=== PATIENT | male | born 1960 | race Caucasian/White ===

== ENCOUNTER 2021-01-08 13:00 | Observation (INO) ==
--- NOTE | 2021-01-08 13:20 | ERNOTE ---
Neuro HPI ER Record Date of Service: 01/08/21 Presenting Symptoms: confusion, other - unresponsive episode Time Seen by Provider: 01/08/21 13:00 Source: patient Exam Limitations: clinical condition Immunizations: IMMUNIZATION HX Immunizations Up to Date Yes Allergies/Adverse Reactions: Allergies Allergy/AdvReac Type Severity Reaction Status Date / Time No Known Allergies Allergy Verified 01/08/21 16:13 Home Medications: HOME MEDICATIONS Aspirin [Aspirin Chewable] 81 mg PO DAILY 01/08/21 [Last Taken Unknown] Clopidogrel Bisulfate [Plavix] 75 mg PO DAILY 01/08/21 [Last Taken Unknown] Duloxetine HCl [Cymbalta] 60 mg PO BID 01/08/21 [Last Taken Unknown] Pregabalin [Lyrica] 100 mg PO TID 01/08/21 [Last Taken Unknown] Rosuvastatin Calcium [Crestor] 20 mg PO DAILY 01/08/21 [Last Taken Unknown] traMADol HCL [Tramadol HCl] 50 mg PO DAILY 01/08/21 [Last Taken Unknown] - Pain Score Pain Score #1 Pain Score: 0 - History of Present Illness Narrative: The patient is a 60 year old male who presents via [facility] for unresponsive episode which has been present since [employer]. There are associated symptoms of altered mentation. The patient denies pain. There are no alleviating factors. There are no aggravating factors. Previous treatments have included: none. The past medical history includes: MA. The social history is positive for daily alcohol use. The patient has had no known ill contacts. Patient was at work and last seen by coworker at 1220 and was reported normal. 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 Patient began becoming responsive during transport to ER. Patient upon arrival oriented to month and self but disoriented to events, location or year. Patient denies recent known fall, injury or illness. Family presents and states that patient did not have facial bruising this am upon leaving home. Patient also upon arrival reported daily alcohol use which he now denies as well as denied by significant other at bedside. Patient received his second Pfizer COVID vaccine 1 week ago. Review of Systems - Review of Systems Constitutional: Absent: recent illness EYE: Present: no symptoms reported. Absent: vision changes ENT: Absent: ear pain, nasal drainage Respiratory: Absent: shortness of breath, cough Cardiology: Absent: chest pain Gastrointestinal/Abdominal: Absent: nausea, vomiting, diarrhea Genitourinary: Present: no symptoms reported. Absent: dysuria Neurological: Present: no symptoms reported. Absent: headache, dizziness/light- headedness Medical History (Last Reviewed 01/08/21 @ 14:06 by MINERVA Manzanares) Chronic pain Diabetes controlled with diet Marijuana smoker Surgical History: Surgical History (Last Reviewed 01/08/21 @ 14:06 by MINERVA Manzanares) Forearm laceration with surgical repair History of surgery left femoral stent placement 06/17 Family History: Family History (Last Reviewed 01/08/21 @ 14:06 by MINERVA Manzanares) Mother Diabetes Hypertension Chronic back pain Father Throat cancer Brother Chronic back pain Social History: (Last Reviewed 01/08/21 @ 14:06 by MINERVA Manzanares) Social History: Marital status: lives independently: Yes household members: spouse Highest level of school completed/degree received: GED or equivalent Service: No Tobacco: Smoking Status: Former smoker Smoking End Date: 06/28/20 Alcohol: alcohol intake: current Alcohol type: hard liquor alcohol intake frequency: a few times a month Substance Use: substance use type: marijuana Dietary Habits: caffeine: Yes Type: coffee Physical Exam - Physical Exam General Appearance: Present: alert, mild distress, other - flat affect, appears disoriented Head Exam: Present: ecchymosis - bruising noted to right eyebrow and right cheek. 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 Absent: disoriented to person Skin Exam: Present: normal color, warm/dry [place] Coma Scale - Assess Eye Opening: Spontaneous Motor: Obeys Commands Verbal: Confused - Total Coma Scale Total: 14 Initial Stroke Assessment - Date/Time of assessment Stroke Scale Date: 01/08/21 Stroke Scale Time: 13:00 - NIH Stroke Scale Level of Consciousness: Alert LOC Questions (Year and Age): Answers one correctly LOC Commands (open/close eyes/fist): Performs both correctly Lateral Gaze Paresis: None Visual Field Loss: No visual loss Facial Palsy: Normal movement Right Arm Motor (10 sec hold): No drift Left Arm Motor (10 sec hold): No drift Right Leg Motor (5 sec hold): No drift Left Leg Motor (5 sec hold): No drift Limb Ataxia (finger/nose heel/hinton): Absent Sensory Loss (pinprick arms/legs/face): No sensory loss Language Aphasia (description/naming/reading): No aphasia; normal Dysarthria (speech clarity): Normal articulation Neglect Inattention (visual/tactile/auditory/spatial/person): No neglect Initial Stroke Scale Score:: 1 - Stroke Risk Assessment Stroke Risk Assessment Level: 1-4 Mild Impairment Stroke Inclusion/Exclusion Cri - Inclusion Questions: Yes Onset of symptoms <3 1/2 hours of admission to ETC: Yes - Exclusion Questions: Major symptoms rapidly improving: Yes Secondary Stroke Assessment - NIH Stroke Scale Level of Consciousness: Alert LOC Questions (Year and Age): Answers both correctly LOC Commands (open/close eyes/fist): Performs both correctly Lateral Gaze Paresis: None Visual Field Loss: No visual loss Facial Palsy: Normal movement Right Arm Motor (10 sec hold): No drift Left Arm Motor (10 sec hold): No drift Right Leg Motor (5 sec hold): No drift Left Leg Motor (5 sec hold): No drift Limb Ataxia (finger/nose heel/hinton): Absent Sensory Loss (pinprick arms/legs/face): No sensory loss Language Aphasia (description/naming/reading): No aphasia; normal Dysarthria (speech clarity): Normal articulation Neglect Inattention (visual/tactile/auditory/spatial/person): No neglect Secondary Stroke Scale Total:: 0 - Results of Tests Evidence of acute intracranial bleed: No Evidence of acute ischemic stroke: No CT result is negative: Yes CT results reported by : Platelets >100,000/ Hemogram normal: No PT<15 or INR <1.7: No PTT normal: Yes Progress - Date and Time Seen: Date and Time: 01/08/21 13:45 Patient beginning to recall events and states he remembers feeling dizzy following his route so he sat down in the back of his truck to rest. Unsure by reports what patients exact location was at time of being found. Lactic acid elevation which related to presentation suspicious for being postictal due to improving recollection following unresponsive event. 01/08/21 14:32 Results of labs and imaging discussed with patient and spouse at bedside. Patient returned to baseline and is alert and oriented by still unsure of events leading up to ER visit. Patient states he only recalls feeling dizzy and sitting down to rest but thought he had sat down in the back of his truck and does not recall any events following. Patient does take Tramadol for pain which could be cause for event. Case was reviewed with and will admit for observation, IV hydration and to schedule follow up with neurology. - Results and Orders Patient's Lab Results:: I have reviewed the patient's lab results. - Vital Signs Patient's Vital Signs:: I have reviewed the patient's vital signs. Vital Signs: Vital Signs 01/08/21 13:00 Temperature 36.4 C Pulse Rate 124 H Respiratory Rate 18 Blood Pressure 149/86 H O2 Sat by Pulse Oximetry 97 - EKG EKG #1 EKG: NSR - tachycardia rate 108, RBBB - incomplete EKG read: Reviewed by me EKG Comments: No acute ischemic change, no ST elevation, no ectopy - X-Ray X-Ray #1 X-Ray: chest Interpretation: Reviewed by me X-ray Comments: IMPRESSION: Mild left basilar heterogeneous opacities, possibly scarring or subsegmental atelectasis. No focal consolidation. Electronically signed by Lima Oscar D.O.. - CT/Ultrasound CT/Ultrasound Narrative: Impression: No acute intracranial process. Findings discussed with Shantelle by telephone at 1:18 PM on 01/08/2021. Electronically signed by Lima Oscar D.O.. - Progress/Reassessment Chief Complaint: CerebroVascular Accident Progress:: Improved Departure Clinical Impression: Transient alteration of awareness, Lactic acid increased Facial contusion Qualifiers: Encounter type: initial encounter Qualified Code(s): S00.83XA - Contusion of other part of head, initial encounter - Departure Disposition: Still a patient Condition: Stable
[2021-01-08 13:23] LABS: Hematocrit 41.9 % (42.0-52.0); Hemoglobin 13.7 gm/dL (13.5-18.0); Mean Cell Volume 88.2 fl (78-100); Mean Corpuscular Hemoglobin 28.8 pg (27-31); Mean Corpuscular Hgb Conc 32.7 g/dl (32-36); Mean Platelet Volume 8.6 fl (8-11.3); Neutrophil # 3.5 K/mm3 (1.3-6.0); Neutrophil % 37.6 % (42-75.0); Platelet Count 260 K/mm3 (150-450); Red Blood Count 4.75 M/mm3 (4.7-6.0); Red Cell Distribution Width 12.6 % (11.5-14.0); White Blood Count 9.4 K/mm3 (4.0-10.5)
[2021-01-08 13:33] LABS: Prothrombin Time (Patient) 10.4 Seconds (9.1-10.7)
[2021-01-08 13:35] LABS: Urine Bilirubin Negative (NEGATIVE); Urine Blood Negative /ul (NEGATIVE); Urine Ketone Negative (NEGATIVE); Urine Nitrite Negative (NEGATIVE); Urine Protein 15 mg/dL (NEGATIVE); Urine Urobilinogen Normal (NORMAL); Urine pH 5.5 pH (5.0-7.0)
[2021-01-08 13:43] LABS: ALT 32 U/L (19-67); AST 23 U/L (0-48); Albumin * 4.5 gm/dl (3.4-5.0); Alkaline Phosphatase * 108 U/L (50-170); Anion Gap 23.3 mmol/L (6.8-13.8); BUN/Creatinine Ratio 8.9 (9.0-21.6); Bilirubin, Total 0.3 mg/dL (0.0-1.1); Blood Urea Nitrogen 11 mg/dL (6-23); Ca. Corrected For Albumin 8.2 mg/dL (8.4-10.2); Calcium * 8.9 mg/dL (7.9-10.9); Carbon Dioxide 15.5 mmol/L (24-32.6); Chloride 97 mmol/L (97-106); Glucose * 164 mg/dL (70-110); Potassium 3.8 mmol/L (3.4-4.6); Sodium 132 mmol/L (132-142); Total Protein 7.9 gm/dL (6.2-8.2)
[2021-01-08 13:46] LABS: Troponin I Less than 0.017 ng/mL (0.00-0.10)
[2021-01-08] MEDS ORDERED: NORMAL SALINE 1,000 ML IV PRN (13:46)
[2021-01-08 13:50] LABS: Urine Appearance Slightly Cloudy (CLEAR); Urine Bacteria None Seen; Urine Color Yellow; Urine RBC None Seen /hpf (0-5); Urine WBC 0-5 /hpf (0-5)
[2021-01-08 13:51] LABS: Cocaine Ur Negative (NEGATIVE); Urine Barbiturate Negative (NEGATIVE); Urine Benzodiazepines Negative (NEGATIVE); Urine Opiates Negative (NEGATIVE); Urine PCP Negative (NEGATIVE); Urine Sperm TRACE
[2021-01-08 13:58] LABS: Urine THC Positive (NEGATIVE)
[2021-01-08] MEDS: NORMAL SALINE 1,000 ML IV PRN ×2 (15:04→23:59)
[2021-01-08] MEDS ORDERED: ACETAMINOPHEN 500 MG TABLET PO PRN (20:25)
[2021-01-08] MEDS ORDERED: traMADol HCL 50 MG TABLET PO PRN (20:25)
[2021-01-08] MEDS: DULoxetine HCL 30 MG CAPSULE.SA PO SCH (21:58)
[2021-01-08] MEDS: PREGABALIN 50 MG CAPSULE PO SCH (21:59)
[2021-01-09] MEDS ORDERED: ROSUVASTATIN CALCIUM 20 MG TABLET PO SCH ×2 (09:00→21:00)
[2021-01-09] MEDS ORDERED: CLOPIDOGREL BISULFATE 75 MG TABLET PO SCH (09:00)
[2021-01-09] MEDS ORDERED: ASPIRIN 81 MG TAB.CHEW PO SCH (09:00)
[2021-01-09] MEDS: PREGABALIN 50 MG CAPSULE PO SCH ×2 (09:01→13:38)
[2021-01-09] MEDS: DULoxetine HCL 30 MG CAPSULE.SA PO SCH (09:01)
[2021-01-09 09:16] LABS: Hematocrit 38.7 % (42.0-52.0); Hemoglobin 12.8 gm/dL (13.5-18.0); Mean Cell Volume 86.6 fl (78-100); Mean Corpuscular Hemoglobin 28.6 pg (27-31); Mean Corpuscular Hgb Conc 33.1 g/dl (32-36); Neutrophil % 61.1 % (42-75.0); Platelet Count 237 K/mm3 (150-450); Red Blood Count 4.47 M/mm3 (4.7-6.0); Red Cell Distribution Width 13.1 % (11.5-14.0); White Blood Count 8.2 K/mm3 (4.0-10.5)
[2021-01-09 09:19] LABS: Carboxyhemoglobin % 1.3 % (0.5-1.5)
[2021-01-09 09:42] LABS: Albumin * 3.7 gm/dl (3.4-5.0); Anion Gap 14.6 mmol/L (6.8-13.8); BUN/Creatinine Ratio 12.5 (9.0-21.6); Bilirubin, Total 0.4 mg/dL (0.0-1.1); Ca. Corrected For Albumin 8.6 mg/dL (8.4-10.2); Calcium * 8.7 mg/dL (7.9-10.9); Carbon Dioxide 23.8 mmol/L (24-32.6); Potassium 4.4 mmol/L (3.4-4.6); TSH * 0.826 uIU/mL (0.358-3.74); Total Protein 6.6 gm/dL (6.2-8.2)
--- NOTE | 2021-01-09 09:52 | HP ---
Chief Complaint - Chief Complaint Date of Service: 01/08/21 Time of Service: 18:00 Chief Complaint: Dizzy, loss of consciousness History of Present Illness: Harrison is a 60 yo male who presented to the [facility] ER, brought in for dizziness and loss of consciousness. He was working at [employer] when he was found down in a car bay. He was reported unconscious but came to with arousal. He was confused about what happened. There were no focal deficits noted. Security footage was available showing the episode. He was seen spinning in circles for about 7 minutes and then hit his head on a post/pipe and then fell to the ground where he laid for 17 minutes. His saw the video and described it to me. She reports his right leg was shaking a little while he was down but not like a seizure and the rest of his body did not move until he was found and woken up. He does recall feeling light headed and dizzy, but not spinning around. He does not recall hitting his head. He was noted to have an abrasion to his right eyebrow and he had a headache but otherwise feels fine. Blood work in the ER had an elevated lactate, but otherwise labs were normal. Head CT was normal. He reports the last few days have been normal and no different than usual. No changes in medications, diet, or fluid intake. He was doing his normal work activities when the event happened. He has never had anything happen like this before. He denies seizures or family history of seizures. He is on statin and plavix for peripheral arterial disease with a arterial stent placed last may. He admits to smoking marajuana nightly to help with chronic pain. He drinks occasionally but he is not worried about withdrawal and does not drinking daily. Medical History (Last Reviewed 01/08/21 @ 14:06 by MINERVA Manzanares) Chronic pain Diabetes controlled with diet Marijuana smoker Surgical History: Surgical History (Last Updated 01/08/21 @ 14:34 by Yudith Cade RN) Forearm laceration with surgical repair History of fundoplication 1995 History of surgery left femoral stent placement 06/17 Family History: Family History (Last Reviewed 01/08/21 @ 14:06 by MINERVA Manzanares) Mother Diabetes Hypertension Chronic back pain Father Throat cancer Brother Chronic back pain Social History: (Last Reviewed 01/08/21 @ 14:06 by VINCENT Manzanares Social History: Marital status: lives independently: Yes household members: spouse Highest level of school completed/degree received: GED or equivalent Service: No Tobacco: Smoking Status: Former smoker Smoking End Date: 06/28/20 Alcohol: alcohol intake: current Alcohol type: hard liquor alcohol intake frequency: a few times a month Substance Use: substance use type: marijuana Dietary Habits: caffeine: Yes Type: coffee Immunizations: IMMUNIZATION HX Immunizations Up to Date Yes Allergies/Adverse Reactions: Allergies Allergy/AdvReac Type Severity Reaction Status Date / Time No Known Allergies Allergy Verified 01/08/21 16:13 Home Medications: HOME MEDICATIONS Aspirin [Aspirin Chewable] 81 mg PO DAILY 01/08/21 [Last Taken Unknown] Clopidogrel Bisulfate [Plavix] 75 mg PO DAILY 01/08/21 [Last Taken Unknown] Duloxetine HCl [Cymbalta] 60 mg PO BID 01/08/21 [Last Taken Unknown] Pregabalin [Lyrica] 100 mg PO TID 01/08/21 [Last Taken Unknown] Rosuvastatin Calcium [Crestor] 20 mg PO DAILY 01/08/21 [Last Taken Unknown] traMADol HCL [Tramadol HCl] 50 mg PO DAILY 01/08/21 [Last Taken Unknown] Exam - Exam Vital Signs: Vital Signs - Last Taken Temp 36.9 C 01/09/21 06:40 Pulse 67 01/09/21 09:06 Resp 18 01/09/21 06:40 BP 121/70 01/09/21 06:40 Pulse Ox 97 01/09/21 06:40 Constitutional: Present: Alert, Oriented x3, Cooperative, No distress ENT Exam: Present: hearing grossly normal, TMs normal Eye Exam: bilateral eye: normal inspection Neck: Present: non-tender Respiratory: Present: chest non-tender, lungs clear, normal breath sounds Cardiovascular/Chest: Present: regular rate, rhythm, no murmur Peripheral Pulses: radial (R): 2+, radial (L): 2+ Abdomen: Present: Normal bowel sounds, soft, nontender, nondistended Extremity: Present: normal inspection Skin Exam: Present: other - right eyebrow abrasion Neurologic: Present: 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 Absent: abnormal gait, facial droop, motor weakness, sensory deficit Appearance: Present: appropriate appearance, appropriate insight Eye contact: Present: cooperative, good eye contact, normal speech Thoughts: Present: normal thought pattern, no apparent hallucination Diagnostic Studies: Abnormal Lab Results 01/08/21 01/08/21 01/08/21 Range/Units 13:16 13:16 13:20 RBC (4.7-6.0) M/mm3 Hgb (13.5-18.0) gm/dL Hct 41.9 L (42.0-52.0) % Immature Gran % (Auto) 1.00 H (0.001-0.429) % Immature Gran # (Auto) 0.09 H (0.000-0.0310) K/mm3 Neutrophils % 37.6 L (42-75.0) % Lymphocytes % 52.3 H (20-51) % Basophils % 1.3 H (0.0-1.0) % Lymphocytes # 4.92 H (1.5-3.5) k/mm3 Methemoglobin (0.41-1.15) % Sodium (132-142) mmol/L Plasma Sodium (130-142) mmol/L Chloride (97-106) mmol/L Carbon Dioxide (24-32.6) mmol/L Anion Gap (6.8-13.8) mmol/L BUN/Creatinine Ratio (9.0-21.6) Random Glucose (70-110) mg/dL Lactic Acid, Venous (0.4-2.0) mmol/L Calcium Adj for Albumin (8.4-10.2) mg/dL Urine Protein 15 H (NEGATIVE) mg/dL Urine Marijuana (THC) Positive H (NEGATIVE) 01/08/21 01/08/21 01/09/21 Range/Units 13:20 13:20 09:11 RBC 4.47 L (4.7-6.0) M/mm3 Hgb 12.8 L (13.5-18.0) gm/dL Hct 38.7 L (42.0-52.0) % Immature Gran % (Auto) (0.001-0.429) % Immature Gran # (Auto) (0.000-0.0310) K/mm3 Neutrophils % (42-75.0) % Lymphocytes % (20-51) % Basophils % (0.0-1.0) % Lymphocytes # (1.5-3.5) k/mm3 Methemoglobin (0.41-1.15) % Sodium (132-142) mmol/L Plasma Sodium (130-142) mmol/L Chloride (97-106) mmol/L Carbon Dioxide 15.5 L (24-32.6) mmol/L Anion Gap 23.3 H (6.8-13.8) mmol/L BUN/Creatinine Ratio 8.9 L (9.0-21.6) Random Glucose 164 H (70-110) mg/dL Lactic Acid, Venous 12.1 H* (0.4-2.0) mmol/L Calcium Adj for Albumin 8.2 L (8.4-10.2) mg/dL Urine Protein (NEGATIVE) mg/dL Urine Marijuana (THC) (NEGATIVE) 01/09/21 01/09/21 Range/Units 09:11 09:11 RBC (4.7-6.0) M/mm3 Hgb (13.5-18.0) gm/dL Hct (42.0-52.0) % Immature Gran % (Auto) (0.001-0.429) % Immature Gran # (Auto) (0.000-0.0310) K/mm3 Neutrophils % (42-75.0) % Lymphocytes % (20-51) % Basophils % (0.0-1.0) % Lymphocytes # (1.5-3.5) k/mm3 Methemoglobin 0.0 L (0.41-1.15) % Sodium 143 H (132-142) mmol/L Plasma Sodium 144 H (130-142) mmol/L Chloride 109 H (97-106) mmol/L Carbon Dioxide 23.8 L (24-32.6) mmol/L Anion Gap 14.6 H (6.8-13.8) mmol/L BUN/Creatinine Ratio (9.0-21.6) Random Glucose 142 H (70-110) mg/dL Lactic Acid, Venous (0.4-2.0) mmol/L Calcium Adj for Albumin (8.4-10.2) mg/dL Urine Protein (NEGATIVE) mg/dL Urine Marijuana (THC) (NEGATIVE) Laboratory Results WBC 8.2 K/mm3 (4.0-10.5) 01/09/21 09:11 RBC 4.47 M/mm3 (4.7-6.0) L 01/09/21 09:11 Hgb 12.8 gm/dL (13.5-18.0) L 01/09/21 09:11 Hct 38.7 % (42.0-52.0) L 01/09/21 09:11 MCV 86.6 fl (78-100) 01/09/21 09:11 MCH 28.6 pg (27-31) 01/09/21 09:11 MCHC 33.1 g/dl (32-36) 01/09/21 09:11 RDW 13.1 % (11.5-14.0) 01/09/21 09:11 Plt Count 237 K/mm3 (150-450) 01/09/21 09:11 MPV 9.0 fl (8-11.3) 01/09/21 09:11 Immature Gran % (Auto) 0.20 % (0.001-0.429) 01/09/21 09:11 Immature Gran # (Auto) 0.02 K/mm3 (0.000-0.0310) 01/09/21 09:11 Neutrophils % 61.1 % (42-75.0) 01/09/21 09:11 Lymphocytes % 30.3 % (20-51) 01/09/21 09:11 Monocytes % 6.4 % (0.0-9) 01/09/21 09:11 Eosinophils % 1.0 % (0.0-3.0) 01/09/21 09:11 Basophils % 1.0 % (0.0-1.0) 01/09/21 09:11 Nucleated RBC % 0.0 k/mm3 (0-1) 01/09/21 09:11 Neutrophils # 5.0 K/mm3 (1.3-6.0) 01/09/21 09:11 Lymphocytes # 2.47 k/mm3 (1.5-3.5) 01/09/21 09:11 Monocytes # 0.5 k/mm3 (0.0-1.0) 01/09/21 09:11 Eosinophils # 0.1 k/mm3 (0.0-0.7) 01/09/21 09:11 Absolute Basophils 0.1 k/mm3 (0.0-0.1) 01/09/21 09:11 ESR 9 mm/hr (0-10) 01/08/21 13:20 PT 10.4 Seconds (9.1-10.7) 01/08/21 13:20 INR (Anticoag Therapy) 1.00 INR (0.92-1.08) 01/08/21 13:20 PTT ([place]) 24.0 Seconds (24-32) 01/08/21 13:20 Carboxyhemoglobin 1.3 % (0.5-1.5) 01/09/21 09:11 Methemoglobin 0.0 % (0.41-1.15) L 01/09/21 09:11 Sodium 143 mmol/L (132-142) H 01/09/21 09:11 Plasma Sodium 144 mmol/L (130-142) H 01/09/21 09:11 Potassium 4.4 mmol/L (3.4-4.6) 01/09/21 09:11 Chloride 109 mmol/L (97-106) H 01/09/21 09:11 Carbon Dioxide 23.8 mmol/L (24-32.6) L 01/09/21 09:11 Anion Gap 14.6 mmol/L (6.8-13.8) H 01/09/21 09:11 BUN 12 mg/dL (6-23) 01/09/21 09:11 Creatinine 0.96 mg/dL (0.4-1.4) 01/09/21 09:11 Est GFR (Non-Af Amer) 86 mL/min (60-130) D 01/09/21 09:11 BUN/Creatinine Ratio 12.5 (9.0-21.6) 01/09/21 09:11 Random Glucose 142 mg/dL (70-110) H 01/09/21 09:11 Lactic Acid, Venous 0.9 mmol/L (0.4-2.0) 01/09/21 09:11 Calcium 8.7 mg/dL (7.9-10.9) 01/09/21 09:11 Calcium Adj for Albumin 8.6 mg/dL (8.4-10.2) 01/09/21 09:11 Total Bilirubin 0.4 mg/dL (0.0-1.1) 01/09/21 09:11 AST 28 U/L (0-48) 01/09/21 09:11 ALT 28 U/L (19-67) 01/09/21 09:11 Alkaline Phosphatase 86 U/L (50-170) 01/09/21 09:11 Troponin I Less than 0.017 ng/mL (0.00-0.10) 01/08/21 13:20 Total Protein 6.6 gm/dL (6.2-8.2) 01/09/21 09:11 Albumin 3.7 gm/dl (3.4-5.0) 01/09/21 09:11 TSH 0.826 uIU/mL (0.358-3.74) 01/09/21 09:11 Urine Color Yellow 01/08/21 13:16 Urine Appearance Slightly cloudy (CLEAR) 01/08/21 13:16 Urine pH 5.5 pH (5.0-7.0) 01/08/21 13:16 Ur Specific [place] 1.020 SP.GR. (1.005-1.030) 01/08/21 13:16 Urine Protein 15 mg/dL (NEGATIVE) H 01/08/21 13:16 Urine Glucose (UA) Negative mg/dL (NEGATIVE) 01/08/21 13:16 Urine Ketones Negative mg/dL (NEGATIVE) 01/08/21 13:16 Urine Blood Negative /ul (NEGATIVE) 01/08/21 13:16 Urine Nitrate Negative (NEGATIVE) 01/08/21 13:16 Urine Bilirubin Negative mg/dl (NEGATIVE) 01/08/21 13:16 Urine Urobilinogen Normal EU/dl (NORMAL) 01/08/21 13:16 Ur Leukocyte Esterase Negative /ul (NEGATIVE) 01/08/21 13:16 Urine RBC None seen /hpf (0-5) 01/08/21 13:16 Urine WBC 0-5 /hpf (0-5) 01/08/21 13:16 Ur Epithelial Cells 0-5 /hpf (0-5) 01/08/21 13:16 Urine Bacteria None seen (NONE) 01/08/21 13:16 Urine Sperm Trace (NONE) 01/08/21 13:16 Urine Culture Comments No culture indicated 01/08/21 13:16 Urine Opiates Screen Negative (NEGATIVE) 01/08/21 13:16 Barbiturate Screen Negative (NEGATIVE) 01/08/21 13:16 Ur Phencyclidine Scrn Negative (NEGATIVE) 01/08/21 13:16 Urine Amphetamine Negative (NEGATIVE) 01/08/21 13:16 U Benzodiazepines Scrn Negative (NEGATIVE) 01/08/21 13:16 Urine Cocaine Screen Negative (NEGATIVE) 01/08/21 13:16 Urine Marijuana (THC) Positive (NEGATIVE) H 01/08/21 13:16 Ethyl Alcohol Less than 3.0 mg/dL (0.0-10.0) 01/08/21 13:20 SARS-CoV-2 (PCR) Not detected (NotDetected) 01/08/21 14:30 Assessment/Plan - Narrative Narrative: Harrison is a 60 yo male with altered mental status with loss of consciousness. Unclear etiology. Differential diagnosis includes CVA, vertigo with concussion, seizure. Overall evaluation has been normal with the exception of THC present and elevated lactic acid. The elevated lactic acid may just be secondary to the fall and severe concussion. Will repeat lactic acid. Will give fluids. Head CT was negative. Will plan on a brain MRI tomorrow to evaluate of ischemic stroke. He may need to follow up with neurology as outpatient. Will admit to observation. He has no deficits now and feels pretty normal, with the exception of his abrasions and headache. Plan to discharge to home tomorrow. - Assessment/Plan (1) Severe concussion Problem: Acute Qualifiers: Encounter type: initial encounter Loss of consciousness presence/duration: with LOC of 30 min or less Qualified Code(s): S06.0X1A - Concussion with loss of consciousness of 30 minutes or less, initial encounter (2) Altered mental status Problem: Acute Qualifiers: Altered mental status type: transient alteration of awareness Qualified Code(s): R40.4 - Transient alteration of awareness (3) Facial contusion Problem: Acute Qualifiers: Encounter type: initial encounter Qualified Code(s): S00.83XA - Contusion of other part of head, initial encounter (4) Lactic acid increased Problem: Acute
--- NOTE | 2021-01-09 14:02 | DS ---
(1) Severe concussion Problem: Acute Qualifiers: Encounter type: initial encounter Loss of consciousness presence/duration: with LOC of 30 min or less Qualified Code(s): S06.0X1A - Concussion with loss of consciousness of 30 minutes or less, initial encounter (2) Altered mental status Problem: Resolved Qualifiers: Altered mental status type: transient alteration of awareness Qualified Code(s): R40.4 - Transient alteration of awareness (3) Facial contusion Problem: Acute Qualifiers: Encounter type: initial encounter Qualified Code(s): S00.83XA - Contusion of other part of head, initial encounter (4) Lactic acid increased Problem: Resolved Date of Discharge:: 01/09/21 Hospital Course: Harrison was admitted for altered mental status and loss of consciousness. He was evaluated with bloodwork, Head CT, and Brain MRI. There were no significant findings to explain his symptoms. He was monitored in observation with neuro checks and remained normal. He is ok to be discharged as he feels like his baseline. Discussed differentials include an episode of vertigo that caused him to hit his head and then have loss of consciousness vs carbon monoxide poisoning. 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 He was recommended to test his car for carbon monoxide or workplace if he has any further dizziness symptoms. He will be made an outpatient follow up with neurology to discuss any need for further evaluation. Procedures Performed: none Results and Findings: Lab Pending Results 01/08/21 13:16: Urine Color Yellow, Urine Appearance Slightly cloudy, Urine pH 5.5, Ur Specific Ward 1.020, Urine Protein 15 H, Urine Glucose (UA) Negative, Urine Ketones Negative, Urine Blood Negative, Urine Nitrate Negative, Urine Bilirubin Negative, Urine Urobilinogen Normal, Ur Leukocyte Esterase Negative, Urine RBC None seen, Urine WBC 0-5, Ur Epithelial Cells 0-5, Urine Bacteria None seen, Urine Sperm Trace, Urine Culture Comments No culture indicated 01/08/21 13:16: Urine Opiates Screen Negative, Barbiturate Screen Negative, Ur Phencyclidine Scrn Negative, Urine Amphetamine Negative, U Benzodiazepines Scrn Negative, Urine Cocaine Screen Negative, Urine Marijuana (THC) Positive H 01/08/21 13:20: WBC 9.4, RBC 4.75, Hgb 13.7, Hct 41.9 L, MCV 88.2, MCH 28.8, MCHC 32.7, RDW 12.6, Plt Count 260, MPV 8.6, Immature Gran % (Auto) 1.00 H, Immature Gran # (Auto) 0.09 H, Neutrophils % 37.6 L, Lymphocytes % 52.3 H, Monocytes % 6.3, Eosinophils % 1.5, Basophils % 1.3 H, Nucleated RBC % 0.0, Neutrophils # 3.5, Lymphocytes # 4.92 H, Monocytes # 0.6, Eosinophils # 0.1, Absolute Basophils 0.1 01/08/21 13:20: ESR 9 01/08/21 13:20: PT 10.4, INR (Anticoag Therapy) 1.00, PTT (Bre) 24.0 01/08/21 13:20: Sodium 132, Plasma Sodium 133, Potassium 3.8, Chloride 97, Carbon Dioxide 15.5 L, Anion Gap 23.3 H, BUN 11, Creatinine 1.24, Est GFR (Non- Af Amer) 64, BUN/Creatinine Ratio 8.9 L, Random Glucose 164 H, Calcium 8.9, Calcium Adj for Albumin 8.2 L, Total Bilirubin 0.3, AST 23, ALT 32, Alkaline Phosphatase 108, Troponin I Less than 0.017, Total Protein 7.9, Albumin 4.5, Ethyl Alcohol Less than 3.0 01/08/21 13:20: Lactic Acid, Venous 12.1 H* 01/08/21 14:30: SARS-CoV-2 (PCR) Not detected 01/08/21 16:10: Lactic Acid, Venous 1.4 01/09/21 09:11: WBC 8.2, RBC 4.47 L, Hgb 12.8 L, Hct 38.7 L, MCV 86.6, MCH 28.6, MCHC 33.1, RDW 13.1, Plt Count 237, MPV 9.0, Immature Gran % (Auto) 0.20, Immature Gran # (Auto) 0.02, Neutrophils % 61.1, Lymphocytes % 30.3, Monocytes % 6.4, Eosinophils % 1.0, Basophils % 1.0, Nucleated RBC % 0.0, Neutrophils # 5.0, Lymphocytes # 2.47, Monocytes # 0.5, Eosinophils # 0.1, Absolute Basophils 0.1 01/09/21 09:11: Sodium 143 H, Plasma Sodium 144 H, Potassium 4.4, Chloride 109 H, Carbon Dioxide 23.8 L, Anion Gap 14.6 H, BUN 12, Creatinine 0.96, Est GFR (Non-Af Amer) 86 D, BUN/Creatinine Ratio 12.5, Random Glucose 142 H, Calcium 8.7, Calcium Adj for Albumin 8.6, Total Bilirubin 0.4, AST 28, ALT 28, Alkaline Phosphatase 86, Total Protein 6.6, Albumin 3.7, TSH 0.826 01/09/21 09:11: Lactic Acid, Venous 0.9 01/09/21 09:11: Carboxyhemoglobin 1.3, Methemoglobin 0.0 L Discharge Location: Home Disposition: Home self-care Condition: Good Discharge Activity: Activity as tolerated Discharge Diet: General/regular food Referrals: Dacia Sterling ARNP [Primary Care Provider] - Problem Oriented Discharge Instructions to Patient/Family: Concussion, Adult, [id number] Additional Patient Instructions (free text): Follow up with Dr. Dacia Sterling January 16 at 10:00 a.m. Follow up with Neurology Dr. Real February 07 at 9:45 a.m. please check in at 9:30 a.m. in the [place] office phone # [phone] No work and limit driving until 01/14/21. Complete Home Medications List: Complete Home Medication List: Aspirin [Aspirin Chewable] 81 mg PO DAILY 01/08/21 Clopidogrel Bisulfate [Plavix] 75 mg PO DAILY 01/08/21 Duloxetine HCl [Cymbalta] 60 mg PO BID 01/08/21 Pregabalin [Lyrica] 100 mg PO TID 01/08/21 Rosuvastatin Calcium [Crestor] 20 mg PO DAILY 01/08/21 traMADol HCL [Tramadol HCl] 50 mg PO DAILY 01/08/21 Forms: Patient Portal Registration
[2021-01-09 14:18] VITALS: BP 128/56
== END 2021-01-09 14:10 | disposition home or self-care (01) ==
LOC: MS 13:00 → ER 13:00 → MS 15:45
PROVIDERS: ADMIT Family Medicine; ATTEND Family Medicine